=== PATIENT | male | born 1975 | race Caucasian/White ===

== ENCOUNTER → 2016-05-17 | Outpatient (CLI) | payer BC ==
[2016-05-17 09:01] LABS: CHLORIDE,CL 102 mmol/L (98-110); SODIUM,NA 140 mmol/L (136-146)
== END | disposition home or self-care (01) ==
LOC: MW.CHFP 08:24
PROVIDERS: ATTEND Student in an Organized Health Care Education/Training Program
DX: E78.1 Pure hyperglyceridemia (principal)
CPT/HCPCS: 36415; 80053; 80061

== ENCOUNTER → 2016-06-21 | Outpatient (CLI) | payer BC ==
[2016-06-21 10:43] LABS: CHLORIDE,CL 102 mmol/L (98-110); SODIUM,NA 141 mmol/L (136-146)
== END ==
LOC: MW.CHFP 10:08
PROVIDERS: ATTEND Student in an Organized Health Care Education/Training Program
DX: E78.1 Pure hyperglyceridemia (principal); I10 Essential (primary) hypertension; R07.89 Other chest pain
CPT/HCPCS: 36415; 80048; 93005

== ENCOUNTER → 2016-07-08 | Outpatient (CLI) | payer BC ==
--- NOTE | 2016-07-08 11:27 | NM ---
EXAMINATION: Nuclear medicine myocardial perfusion study with exercise stress test. HISTORY: Chest pain. PROCEDURE: Patient exercised according to Prasad protocol for 12 minutes and 48 seconds and achieved maximal hea rt rate of 160 beats per minute. Adequate exercise. Following intravenous administration of 9.1 and 29.9 mCi of technetium 99m sestamibi, stress and r est SPECT images including gating imaging was performed. FINDINGS: Stress and rest myocardial SPECT images demonstrates mildly heterogeneous uptake within the left jonatan tricular myocardium is mildly decreased however fixed uptake along the inferior wall. Mild Global hypokinesis most prominent along the inferior wall. The left ventricular ejection fracti on is 45 %. The left ventricular chamber size is normal. TID is 1.08. IMPRESSION: 1. No evidence of myocardial ischemia. 2. Mild global hypokinesis with mildly decreased ejection fraction of 45 %.
--- NOTE | 2016-07-09 09:25 | PCM.PRNOTE ---
- Free Text/Narrative Note: Procedure: Cardiolite exercise stress test Resting blood pressure 134/86, pulse 65 Patient exercised per Prasad protocol 12 minutes and 48 seconds and achieved a maximum heart rate 160 beats per minute which was 88% of age-predicted maximum heart rate. Mets: 12.8 double product 30081 Resting EKG revealed normal sinus rhythm. With exertion, no significant ST-T changes were noted Test stopped at target heart rate. No complaints of chest pain during exercise or recovery with an unremarkable recovery phase. Impression: #1. Negative stress test for ischemic ST-T changes #2. Good exercise tolerance. #3. Cardiolite portion of test pending
== END ==
LOC: MW.NM 06:34
PROVIDERS: ATTEND Student in an Organized Health Care Education/Training Program
DX: R07.9 Chest pain, unspecified (principal)
CPT/HCPCS: 78452; 93017; A9500

== ENCOUNTER 2018-04-10 20:08 | Emergency (ER) | payer BC ==
[2018-04-10] MEDS ORDERED: Sodium Chloride 0.9% 2.5 ML Syringe FLUSH PRN (20:26)
[2018-04-10] MEDS ORDERED: Sodium Chloride 0.9% 10 ML Syringe FLUSH PRN (20:26)
--- NOTE | 2018-04-10 20:50 | EDM.PDOC ---
ED HPI GENERAL MEDICAL PROBLEM - General Chief Complaint: Chest Pain Stated Complaint: DIZZY, CHEST PAIN Time Seen by Provider: 04/10/18 20:50 Source of Information: Reports: Patient - History of Present Illness INITIAL COMMENTS - FREE TEXT/NARRATIVE: HISTORY AND PHYSICAL: History of present illness: Patient is a 42-year-old male here with complaint of chest pain and dizziness. He states that he was eating dinner this afternoon when he suddenly felt dizzy and had pain in the right side of his chest. His notes that he was pale at this time. He laid on the cough for a while and does states he had a burning in the middle of his chest when he lied down. He states that the chest pain has come and gone a couple of times since then and he currently does not have any pain. He states the dizziness was not him or room spinning but more of a fuzzy feeling. He did have similar symptoms a couple of months ago but states that time it was a gradual onset where this time it came on suddenly. He denies any associated shortness of breath, diaphoresis, nausea. Past medical history of hypertension. No smoking history. Review of systems: As per history of present illness and below otherwise all systems reviewed and negative. Past medical history: As per history of present illness and as reviewed below otherwise noncontributory. Surgical history: As per history of present illness and as reviewed below otherwise noncontributory. Social history: No reported history of drug or alcohol abuse. Family history: As per history of present illness and as reviewed below otherwise noncontributory. Physical exam: General: Patient sitting comfortably in no acute distress and nontoxic appearing HEENT: Atraumatic, normocephalic, pupils reactive, negative for conjunctival pallor or scleral icterus, mucous membranes moist, throat clear, neck supple, nontender, trachea midline. No meningeal signs. Lungs: Clear to auscultation, breath sounds equal bilaterally, chest nontender. Heart: S1S2, regular, negative for clicks, rubs, or overt murmur. Abdomen: Soft, nondistended, nontender. Negative for masses or hepatosplenomegaly. Negative for costovertebral tenderness. Pelvis: Stable nontender. Genitourinary: Deferred. Rectal: Deferred. Extremities: Atraumatic, negative for cords or calf pain. Neurovascular unremarkable. Neuro: Awake, alert, oriented. Cranial nerves II through XII unremarkable. Cerebellum unremarkable. Motor and sensory unremarkable throughout. Exam nonfocal. Notes: Discussed with patient his at length results and my advise to be admitted for observation to rule out ACS as he had presented with similar symptoms in January. He declines admission at this time and understands the risks of this and to follow up should he develop any chest pain. Advised close follow up with his primary care provider. Diagnostics: CBC, CMP, troponin, EKG, CXR Therapeutics: None Prescriptions: None Impression: Chest pain, lightheadedness Plan: 1. Follow-up with primary care provider 2. Return to ED as needed as discussed Definitive disposition and diagnosis as appropriate pending reevaluation and review of above. chest pain Pain Score (Numeric/FACES): 1 - Related Data Allergies Allergy/AdvReac Type Severity Reaction Status Date / Time No Known Allergies Allergy Verified 04/10/18 20:29 Home Meds: Home Meds Venlafaxine [Effexor XR] 150 mg PO DAILY 10/16/13 [History] Lisinopril [Zestril] 10 mg PO DAILY 15 Days #15 tablet 02/09/18 [Rx] hydroCHLOROthiazide [Hydrochlorothiazide] 50 mg PO DAILY 02/09/18 [History] Past Medical History - Past Health History Medical/Surgical History: Denies Medical/Surgical History HEENT History: Reports: None Cardiovascular History: Reports: Hypertension Respiratory History: Reports: None Gastrointestinal History: Reports: None Genitourinary History: Reports: None Musculoskeletal History: Reports: None Neurological History: Reports: None Psychiatric History: Reports: Depression Endocrine/Metabolic History: Reports: None Hematologic History: Reports: None Immunologic History: Reports: None Oncologic (Cancer) History: Reports: None Dermatologic History: Reports: None - Infectious Disease History Infectious Disease History: Reports: None - Past Surgical History Male Surgical History: Reports: None Social & Family History - Family History Family Medical History: Noncontributory - Tobacco Use Smoking Status *Q: Never Smoker - Caffeine Use Caffeine Use: Reports: None - Recreational Drug Use Recreational Drug Use: No ED ROS GENERAL - Review of Systems Review Of Systems: ROS reveals no pertinent complaints other than HPI. ED EXAM, GENERAL - Physical Exam Exam: See Below (see dictation) Course - Vital Signs Last Recorded V/S: Last Vital Signs Temp 98.5 F 04/10/18 20:30 Pulse 67 04/10/18 20:30 Resp 18 04/10/18 20:30 BP 138/92 H 04/10/18 20:30 Pulse Ox 98 04/10/18 20:30 - Orders/Labs/Meds Orders: Active Orders 24 hr Category Date Time Status EKG Documentation Completion [RC] STAT Care 04/10/18 20:26 Active Sodium Chloride 0.9% [Saline Flush] Med 04/10/18 20:26 Active 10 ml FLUSH ASDIRECTED PRN Sodium Chloride 0.9% [Saline Flush] Med 04/10/18 20:26 Active 2.5 ml FLUSH ASDIRECTED PRN Saline Lock Insert [OM.PC] Stat Oth 04/10/18 20:26 Ordered Medication Orders Sodium Chloride (Saline Flush) 10 ml FLUSH ASDIRECTED PRN PRN Reason: Keep Vein Open Sodium Chloride (Saline Flush) 2.5 ml FLUSH ASDIRECTED PRN PRN Reason: Keep Vein Open Labs: Laboratory Tests 04/10/18 04/10/18 Range/Units 20:33 20:33 WBC 10.73 (4.0-11.0) K/uL RBC 5.16 (4.50-5.90) M/uL Hgb 15.1 (13.0-17.0) g/dL Hct 42.7 (38.0-50.0) % MCV 82.8 (80.0-98.0) fL MCH 29.3 (27.0-32.0) pg MCHC 35.4 (31.0-37.0) g/dL RDW Std Deviation 41.8 (28.0-62.0) fl RDW Coeff of Ciara 14 (11.0-15.0) % Plt Count 279 (150-400) K/uL MPV 10.00 (7.40-12.00) fL Neut % (Auto) 53.2 (48.0-80.0) % Lymph % (Auto) 34.9 (16.0-40.0) % Nicol[place] % (Auto) 9.5 (0.0-15.0) % Eos % (Auto) 2.1 (0.0-7.0) % Baso % (Auto) 0.3 (0.0-1.5) % Neut # (Auto) 5.7 (1.4-5.7) K/uL Lymph # (Auto) 3.8 H (0.6-2.4) K/uL Nicol[place] # (Auto) 1.0 H (0.0-0.8) K/uL Eos # (Auto) 0.2 (0.0-0.7) K/uL Baso # (Auto) 0.0 (0.0-0.1) K/uL Nucleated RBC % 0.0 /100WBC Nucleated RBCs # 0 K/uL Sodium 137 (136-148) mmol/L Potassium 3.5 (3.5-5.1) mmol/L Chloride 100 (98-107) mmol/L Carbon Dioxide 27.0 (21.0-32.0) mmol/L BUN 23 H (7.0-18.0) mg/dL Creatinine 1.4 H (0.8-1.3) mg/dL Est Cr Clr Drug Dosing 79.27 mL/min Estimated GFR (MDRD) 56.1 ml/min Glucose 104 (74-106) mg/dL Calcium 9.4 (8.5-10.1) mg/dL Total Bilirubin 0.3 (0.2-1.0) mg/dL AST 15 (15-37) IU/L ALT 28 (14-63) IU/L Alkaline Phosphatase 98 (46-116) U/L Troponin I < 0.050 (0.000-0.056) ng/mL Total Protein 7.8 (6.4-8.2) g/dL Albumin 3.9 (3.4-5.0) g/dL Globulin 3.9 (2.6-4.0) g/dL Albumin/Globulin Ratio 1.0 (0.9-1.6) Meds: Medications Generic Name Dose Route Start Last Admin Trade Name Freq PRN Reason Stop Dose Admin Sodium Chloride 10 ml 04/10/18 20:26 Saline Flush FLUSH ASDIRECTED PRN Keep Vein Open Sodium Chloride 2.5 ml 04/10/18 20:26 Saline Flush FLUSH ASDIRECTED PRN Keep Vein Open Departure - Departure Time of Disposition: 21:45 Disposition: Home, Self-Care 01 Condition: Good Clinical Impression: Lightheadedness Chest pain Qualifiers: Chest pain type: unspecified Qualified Code(s): R07.9 - Chest pain, unspecified Instructions: Nonspecific Chest Pain, [id number] Referrals: Rachel Dixon PA [Primary Care Provider] - Forms: ED Department Discharge Additional Instructions: The following information is given to patients seen in the emergency department who are being discharged to home. This information is to outline your options for follow-up care. We provide all patients seen in our emergency department with a follow-up referral. The need for follow-up, as well as the timing and circumstances, are variable depending upon the specifics of your emergency department visit. If you don't have a primary care physician on staff, we will provide you with a referral. We always advise you to contact your personal physician following an emergency department visit to inform them of the circumstance of the visit and for follow-up with them and/or the need for any referrals to a consulting specialist. The emergency department will also refer you to a specialist when appropriate. This referral assures that you have the opportunity for follow-up care with a specialist. All of these measure are taken in an effort to provide you with optimal care, which includes your follow-up. Under all circumstances we always encourage you to contact your private physician who remains a resource for coordinating your care. When calling for follow-up care, please make the office aware that this follow-up is from your recent emergency room visit. If for any reason you are refused follow-up, please contact the [facility] Emergency Department at and asked to speak to the emergency department charge nurse. [facility] [address] [place] [id number] 1. Follow-up with primary care provider 2. Return to ED as needed as discussed - My Orders Last 24 Hours: My Active Orders 04/10/18 20:26 EKG Documentation Completion [RC] STAT Sodium Chloride 0.9% [Saline Flush] 10 ml FLUSH ASDIRECTED PRN Sodium Chloride 0.9% [Saline Flush] 2.5 ml FLUSH ASDIRECTED PRN Saline Lock Insert [OM.PC] Stat - Assessment/Plan Last 24 Hours: My Active Orders 04/10/18 20:26 EKG Documentation Completion [RC] STAT Sodium Chloride 0.9% [Saline Flush] 10 ml FLUSH ASDIRECTED PRN Sodium Chloride 0.9% [Saline Flush] 2.5 ml FLUSH ASDIRECTED PRN Saline Lock Insert [OM.PC] Stat
--- NOTE | 2018-04-10 21:03 | CR ---
INDICATION: chest pain. prior sent. 1 image TECHNIQUE: Chest 1 view. COMPARISON: 02/09/18 FINDINGS: Cardiovascular and mediastinum: Heart size and vasculature are normal in caliber and appearance. Mediastinum is within normal limits. Lungs and pleural space: Lungs are clear. No sign of infiltrate or mass. No sign of pleural effusion. No pneumothorax. Bones and soft tissues: No significant findings. IMPRESSION: Unremarkable chest. Dictated by: Tod Rosa MD @ 04/10/2018 21:00:39 (Electronically Signed)
[2018-04-10 21:06] LABS: CHLORIDE,CL 100 mmol/L (98-107); SODIUM,NA 137 mmol/L (136-148)
== END 2018-04-10 22:00 | disposition home or self-care (01) ==
LOC: MW.ED 20:08
DX: R42 Dizziness and giddiness (principal); R07.9 Chest pain, unspecified; I10 Essential (primary) hypertension; Z79.899 Other long term (current) drug therapy
CPT/HCPCS: 36415; 71045; 71045-26; 80053; 84484; 85025; 93005; 99284; 99285-25

== ENCOUNTER 2020-03-21 13:42 | Emergency (ER) | payer BC ==
[2020-03-21] MEDS ORDERED: Aspirin 81 MG Tab.Chew PO ONE (13:47)
[2020-03-21] MEDS ORDERED: Sodium Chloride 0.9% 2.5 ML Syringe FLUSH PRN (13:47)
[2020-03-21] MEDS ORDERED: Sodium Chloride 0.9% 10 ML Syringe FLUSH PRN (13:47)
[2020-03-21 14:38] LABS: BLOOD UREA NITROGEN,BUN 17 mg/dL (7.0-18.0); CARBON DIOXIDE,CO2 27.7 mmol/L (21.0-32.0); CHLORIDE,CL 106 mmol/L (98-107); GLUCOSE RANDOM 94 mg/dL (74-106); POTASSIUM,K 3.6 mmol/L (3.5-5.1); SODIUM,NA 143 mmol/L (136-148)
--- NOTE | 2020-03-21 14:59 | CR ---
INDICATION: Chest pain TECHNIQUE: Chest 1 views COMPARISON: 04/10/2018 FINDINGS: Cardiovascular and mediastinum: Heart size and vasculature are normal in caliber and appearance. Lungs and pleural spaces: Lungs are clear. No sign of infiltrate or mass. No sign of pleural effusion. No pneumothorax. Bones and soft tissues: No significant findings. IMPRESSION: No acute findings and no significant changes from the prior exam. Dictated by Bandar Cummings MD @ Mar 21 2020 2:58PM Signed by Dr. Bandar Cummings @ Mar 21 2020 2:59PM
--- NOTE | 2020-03-21 18:05 | EDM.PDOC ---
ED HPI GENERAL MEDICAL PROBLEM - General Chief Complaint: Chest Pain Stated Complaint: CHEST ISSUES Time Seen by Provider: 03/21/20 14:19 - History of Present Illness INITIAL COMMENTS - FREE TEXT/NARRATIVE: CHIEF COMPLAINT(S): Chest pain HISTORY OF PRESENT ILLNESS: This is a 44-year-old man and with a past medical history of chest pain and multiple visits and work-ups and history of hypertension who comes to the emergency department with a chief complaint of chest pain. The patient states that this morning while he was doing his exercise he developed central chest pressure without any radiation without any pain associated with shortness of breath. He denied any diaphoresis, nausea, vomiting. He denied any radiation of this pressure or development of any pain in his back or arms. He denies any syncope. He states that it was not as severe as prior. He states that he called his PCP at approximately 1 PM after going to work and they told him to come to the emergency department. He states that the pressure has continued but decreased. He states he also had some associated lightheadedness. He denies any personal history of CAD and has never had stents but states that he does have a family history where his maternal grandfather at 50 years old from a heart attack. He states that he has had prior stress test and echocardiograms but has not yet had a left heart catheterization. He denies any history of aortic aneurysm or abdominal aortic aneurysm. He denies any other symptoms. REVIEW OF SYSTEMS: Constitutional: Denies fever, chills. Eyes: Denies eye pain Ears, Nose, Mouth, & Throat: Denies earache Cardiovascular: Positive for chest pressure Respiratory: Denies shortness of breath Gastrointestinal: Denies Nausea, vomiting, diarrhea, hematochezia. Genitourinary: Denies hematuria Skin:Denies a rash Neurological: Denies blurred vision, numbness, tingling, weakness Psychiatric: Denies depression PAST MEDICAL HISTORY: As per history of present illness and as reviewed below otherwise noncontributory. SURGICAL HISTORY: As per history of present illness and as reviewed below otherwise noncontributory. SOCIAL HISTORY: As per history of present illness and as reviewed below ot herwise noncontributory. FAMILY HISTORY: As per history of present illness and as reviewed below otherwise noncontributory. EXAMINATION OF ORGAN SYSTEMS/BODY AREAS: Constitutional: Blood pressure was 166/101, heart rate 80, respiratory rate 18 with an oxygen saturation 95% on room air. Temperature 36.3 General: Overall well-appearing man who is in no acute distress Psychiatric: Appropriate mood and affect. Eyes: No scleral icterus or conjunctival erythema ENMT: Moist mucous membranes. No pharyngeal erythema Cardiovascular: Regular, rate, and rhythm. No gallops, murmurs, or rubs. Bilateral upper extremity pulses symmetric and intact. No peripheral edema. No JVD. Respiratory: Lungs clear to auscultation bilaterally. No wheezes, rales, or rhonchi. Gastrointestinal: Soft, non-tender, non-distended. Normoactive bowel sounds Genitourinary: No suprapubic tenderness Musculoskeletal: Normal range of motion. Skin: No lesions or abrasions. Neurological: Alert, GCS 15 MEDICAL DECISION MAKING AND COURSE IN THE ED WITH INTERPRETATION/REVIEW OF DIAGNOSTIC STUDIES: This is a 44-year-old man and with a past medical history of prior chest pain and work-up with stress test and echocardiogram, hypertension, and family history of cardiac disease who comes to the emergency department with constant chest pain which sounds typical and exacerbated by exercise. At this time we did obtain an EKG which did not reveal any acute signs of ischemia and was unchanged from prior. Will obtain a cardiac work-up. I did do a review of the patient's prior records and he did have a stress test via nuclear medicine scan which did reveal a normal ejection fraction of 54% with normal wall motion, contractility, and thickening. There is no evidence of myocardial ischemia but there was a fixed decreased uptake along the inferior wall without any evidence of reversible perfusion or ischemia. Echocardiogram was in the EMR however I was unable to obtain a report. In regards to the patient's blood pressure I did have a discussion with the patient. His primary care physician just increased his dose of losartan to 100 mg from 50 mg approximately 1 week ago and he did provide me with a list of his blood pressures daily over the last 1 to 2 weeks. This blood pressure seems to be around baseline. Therefore at this time given the recent change we will not add additional medications or treat his hypertension here. Heart Score History: Moderately Suspicious (1) ECG: Non-specific repolarization (1) Age: <45 (0) Risk Factors: 1-2 (2) Initial Troponin: </= normal limit (0) Total Score: 4 PERC Rule Age (>/=50): No (0) HR (>/=100): No (0) SaO2 on RA <95%: No (0) Unilateral Leg Swelling: No (0) Hemoptysis: No (0) Surgery/Trauma in last month requiring general anesthesia: No (0) Prior PE or DVT: : No (0) Hormone Use: No (0) PERC negative Since patient is PERC negative and pre-test probability <15%, there is no need for more intensive workup, <2% chance of PE Laboratory: CBC is unremarkable. CMP is unremarkable. Troponin x2 is negative. The radiological images were viewed by myself along with reading the report from the radiologist. Chest x-ray does not reveal any acute cardiopulmonary process. Twelve-lead EKG interpreted by myself. Normal sinus rhythm at a rate of 73beats per minute.left axis. SD interval is 188ms. QRS duration is 85ms. ST segments are normal without elevations or depressions. No Q waves present. Probable hypertrophy. No changes demonstrated from prior EKG dated April 10, 2018. There appears to be a left anterior fascicular block interpretation: Sinus rhythm with left anterior fascicular block Twelve-lead EKG interpreted by myself. Normal sinus rhythm at a rate of 62beats per minute. left axis. SD interval is 199ms. QRS duration is 85ms. ST segments are normal without elevations or depressions. No Q waves present. Probable hypertrophy. No changes demonstrated from prior EKG dated today. Interpretation: Sinus rhythm with left anterior fascicular block After initial troponin I did have a shared decision-making conversation with the patient. At this time we elected to repeat the troponin and he stated that he would like to have another warehouse clerk. I did discuss with him that I could contact a warehouse clerk at [facility] in [place]. He was amenable to this plan. I contacted Dr. Bello who stated that he would be able to see the patient on Tuesday approximately 2 to 3 days from now at 11 AM in his clinic for further evaluation. I did discuss this with the patient he was amenable to this plan. Throughout the emergency department stay the patient continued to remain stable and his pain had improved. I did discuss with him at this time that his troponin was negative. I discussed strict return precautions and provided the patient with a contact number and address for the warehouse clerk. He states that he would go to the appointment on Tuesday. He was amenable to discharge and had no further questions. DISPOSITION: The patient was discharged home in stable condition. The patient will follow up with cardiology in 3 days CONDITION: Fair PROCEDURES: None FINAL IMPRESSION(S)/DIAGNOSES: 1. Acute chest pain Dwight Ortega M.D. chest Pain Score (Numeric/FACES): 2 - Related Data Allergies Allergy/AdvReac Type Severity Reaction Status Date / Time No Known Allergies Allergy Verified 03/21/20 14:06 Home Meds: Home Meds Venlafaxine [Effexor XR] 150 mg PO DAILY 10/16/13 [History] hydroCHLOROthiazide [Hydrochlorothiazide] 50 mg PO DAILY 02/09/18 [History] lisinopriL [Zestril] 10 mg PO DAILY 15 Days #15 tablet 02/09/18 [Rx] Past Medical History - Past Health History Medical/Surgical History: Denies Medical/Surgical History HEENT History: Reports: None Cardiovascular History: Reports: Hypertension Respiratory History: Reports: None Gastrointestinal History: Reports: None Genitourinary History: Reports: None, Renal Calculus Musculoskeletal History: Reports: None Neurological History: Reports: None Psychiatric History: Reports: Depression Endocrine/Metabolic History: Reports: None Hematologic History: Reports: None Immunologic History: Reports: None Oncologic (Cancer) History: Reports: None Dermatologic History: Reports: None - Infectious Disease History Infectious Disease History: Reports: None - Past Surgical History Male Surgical History: Reports: None Social & Family History - Family History Family Medical History: No Pertinent Family History - Tobacco Use Tobacco Use Status *Q: Never Tobacco User - Caffeine Use Caffeine Use: Reports: None - Recreational Drug Use Recreational Drug Use: No ED ROS GENERAL - Review of Systems Review Of Systems: See Below ED EXAM, GENERAL - Physical Exam Exam: See Below Course - Vital Signs Last Recorded V/S: Last Vital Signs Temp 36.3 C 03/21/20 18:27 Pulse 66 03/21/20 18:27 Resp 18 03/21/20 18:27 BP 151/107 H 03/21/20 18:27 Pulse Ox 97 03/21/20 18:27 - Orders/Labs/Meds Orders: Active Orders 24 hr Category Date Time Status Saline Lock Insert [OM.PC] Stat Oth 03/21/20 13:47 Ordered Labs: Laboratory Tests 03/21/20 03/21/20 03/21/20 Range/Units 13:53 13:53 17:12 WBC 9.12 (4.0-11.0) K/uL RBC 5.81 (4.50-5.90) M/uL Hgb 16.8 (13.0-17.0) g/dL Hct 49.3 (38.0-50.0) % MCV 84.9 (80.0-98.0) fL MCH 28.9 (27.0-32.0) pg MCHC 34.1 (31.0-37.0) g/dL RDW Std Deviation 42.9 (28.0-62.0) fl RDW Coeff of Ciara 14 (11.0-15.0) % Plt Count 285 (150-400) K/uL MPV 10.50 (7.40-12.00) fL Neut % (Auto) 60.6 (48.0-80.0) % Lymph % (Auto) 29.2 (16.0-40.0) % [place] % (Auto) 8.0 (0.0-15.0) % Eos % (Auto) 1.9 (0.0-7.0) % Baso % (Auto) 0.3 (0.0-1.5) % Neut # (Auto) 5.5 (1.4-5.7) K/uL Lymph # (Auto) 2.7 H (0.6-2.4) K/uL [place] # (Auto) 0.7 (0.0-0.8) K/uL Eos # (Auto) 0.2 (0.0-0.7) K/uL Baso # (Auto) 0.0 (0.0-0.1) K/uL Nucleated RBC % 0.0 /100WBC Nucleated RBCs # 0 K/uL Sodium 143 (136-148) mmol/L Potassium 3.6 (3.5-5.1) mmol/L Chloride 106 (98-107) mmol/L Carbon Dioxide 27.7 (21.0-32.0) mmol/L BUN 17 (7.0-18.0) mg/dL Creatinine 1.3 (0.8-1.3) mg/dL Est Cr Clr Drug Dosing 83.66 mL/min Estimated GFR (MDRD) > 60.0 ml/min Glucose 94 (74-106) mg/dL Calcium 8.7 (8.5-10.1) mg/dL Total Bilirubin 0.3 (0.2-1.0) mg/dL AST 33 (15-37) IU/L ALT 73 H (14-63) IU/L Alkaline Phosphatase 107 (46-116) U/L Troponin I < 0.050 < 0.050 (0.000-0.056) ng/mL Total Protein 7.4 (6.4-8.2) g/dL Albumin 3.8 (3.4-5.0) g/dL Globulin 3.6 (2.6-4.0) g/dL Albumin/Globulin Ratio 1.1 (0.9-1.6) Meds: Medications Discontinued Medications Generic Name Dose Route Start Last Admin Trade Name Freq PRN Reason Stop Dose Admin Aspirin 324 mg 03/21/20 13:47 03/21/20 14:07 Aspirin PO 03/21/20 13:48 324 mg ONETIME ONE Administration Sodium Chloride 10 ml 03/21/20 13:47 03/21/20 14:08 Saline Flush FLUSH 10 ml ASDIRECTED PRN Administration Keep Vein Open Sodium Chloride 2.5 ml 03/21/20 13:47 03/21/20 14:08 Saline Flush FLUSH 2.5 ml ASDIRECTED PRN Administration Keep Vein Open Departure - Departure Time of Disposition: 18:02 Disposition: Home, Self-Care 01 Condition: Fair Clinical Impression: Chest pain Instructions: Nonspecific Chest Pain, Adult, [id number], Angina, [id number] Referrals: Rachel Dixon PA [Primary Care Provider] - Forms: ED Department Discharge Additional Instructions: You were evaluated today on an emergent basis. At this time your work-up for a heart attack was negative. You are in a moderate risk zone given your family history, your history of hypertension and your prior episodes of chest pain. Therefore it is important that you follow-up with Dr. Bello in [place] on Tuesday03/24/19 at 11 AM. Direction and number are below. It is important that you keep this appointment. In addition I would like you to follow-up with your primary care physician for further blood pressure management. We did not make any adjustments today as this appears to be your baseline blood pressure and your primary care physician was already titrating her doses at home. If you have any new or worsening symptoms such as worsening chest pain, chest pain that radiates to the back and/or left arm, associated with sweating, nausea or vomiting please return to the emergency department for further evaluation. Please take 81 mg of aspirin at home daily until your follow-up with cardiology. Dr. Bello (Patient Intake Coordinator) [address] [phone] . The patient is informed of any results of their evaluation and diagnostic workup and all questions are answered. They are given discharge instructions and return precautions. The patient is stable for discharge. The patient states they understand and agree with the plan and that they will return if their symptoms get worse or if they have any new concerns. The following information is given to patients seen in the emergency department who are being discharged to home. This information is to outline your options for follow-up care. We provide all patients seen in our emergency department with a follow-up referral. The need for follow-up, as well as the timing and circumstances, are variable depending upon the specifics of your emergency department visit. If you don't have a primary care physician on staff, we will provide you with a referral. We always advise you to contact your personal physician following an emergency department visit to inform them of the circumstance of the visit and for follow-up with them and/or the need for any referrals to a consulting specialist. The emergency department will also refer you to a specialist when appropriate. This referral assures that you have the opportunity for follow-up care with a specialist. All of these measure are taken in an effort to provide you with optimal care, which includes your follow-up. Under all circumstances we always encourage you to contact your private physician who remains a resource for coordinating your care. When calling for follow-up care, please make the office aware that this follow-up is from your recent emergency room visit. If for any reason you are refused follow-up, please contact the [facility] Emergency Department at and asked to speak to the emergency department charge nurse. Sepsis Event Note (ED) - Evaluation Sepsis Screening Result: No Definite Risk - Focused Exam Vital Signs: Vital Signs Temp Pulse Resp BP Pulse Ox 03/21/20 18:27 36.3 C 66 18 151/107 H 97 03/21/20 16:35 36.2 C 72 21 H 159/116 H 96 03/21/20 14:09 80 160/116 H 96 03/21/20 14:03 36.3 C 80 18 166/101 H 95
--- NOTE | 2020-03-22 17:50 | PCM.SN.2 ---
- Free Text/Narrative Note: I contacted patient today for follow-up. He stated that he was feeling well and that he had a mild headache and just laid low today. He states that he plans on going to his appointment on Tuesday. He states that he has not had any worsening of his symptoms and feels overall okay. I did discuss with him that it is good that his symptoms have not worsened and that if they were to worsen he needs to come back to the emergency department. He did express understanding.
== END 2020-03-21 18:27 | disposition home or self-care (01) ==
LOC: MW.ED 13:42
DX: R07.89 Other chest pain (principal); R42 Dizziness and giddiness; I10 Essential (primary) hypertension; Z79.899 Other long term (current) drug therapy
CPT/HCPCS: 36415; 71045; 80053; 84484; 85025; 93005; 99285; A9270; 93010; 99283